=== PATIENT | male | born 1940 | race Caucasian/White ===

== ENCOUNTER 2016-11-26 11:11 | Day surgery (SDC) | payer MEDICARE, BC ==
[2016-11-25 14:31] VITALS: BMI 29.1
[~2016-11-26] VITALS: Ht 177.8 cm; Wt 92.8 kg
[2016-11-26] VITALS (30 sets, daily range): BP systolic 107–137; BP diastolic 60–80; PULSE 78–84; RESP 12–23; Ht 177.8 cm; Wt 92.8 kg
[2016-11-26] MEDS: LACTATED RINGER'S 1,000 ML IV SCH (01:30)
--- NOTE | 2016-11-26 06:50 | HPN ---
Date/Time of Note Date/Time of Note DATE: 11/26/16 TIME: 06:50 Interval H&P Admission Note Pt. seen H&P reviewed: No system changes KAREN ALCANTAR MD Nov 26, 2016 06:50
[~2016-11-26 11:11] MED LIST: ATOR10TA65 PO; BUPIVACAINE 0.5% (SDV) 30 ML, morphine SULFATE (PF) 8 MG, EPINEPHrine 0.3 MG, KETOROLAC... IRR SCH; CEFAZOLIN 2 GM/50 ML (PMX) 50 ML IVPB SCH; CEPH500C PO; COU5 PO; COU75 PO; DEXAMETHASONE 1 MG TAB PO SCH; DILT180T PO; FURO80TA78 PO; GABAPENTIN 300 MG CAP PO SCH; LIDOCAINE 2% (SDV) 5 ML INJ ONE; MAGN250T24 PO; MELO7.5O PO; METO5TAB65 PO; MULT-860 PO; POTA20TA15 PO; PRED20 PO; TRANEXAMIC ACID 1,000 MG in SOD CHLORIDE 0.9% 100 ML IVPB SCH; [UNRECOGNIZED DRUG - CODE] PO; traMADol 50 MG TAB PO SCH
[2016-11-26 12:31] LABS: INR 1.03; PROTIME 13.5 Sec (12.2-14.2); PT RATIO 1.1
[2016-11-26] MEDS ORDERED: [UNRECOGNIZED DRUG - CODE] PO (12:48)
[2016-11-26] MEDS ORDERED: MELO-109 PO (12:49)
[2016-11-26] MEDS ORDERED: WARF5TAB72 PO (13:00)
[2016-11-26] MEDS ORDERED: DIGO125T6 PO (13:01)
[2016-11-26] MEDS ORDERED: NEOSTIGMINE 3 MG/3 ML SYRINGE ONE (13:22)
[2016-11-26] MEDS ORDERED: PROPOFOL 20 ML ONE (13:22)
[2016-11-26] MEDS ORDERED: GLYCOPYRROLATE 0.4 MG INJ ONE (13:22)
[2016-11-26] MEDS ORDERED: CEFAZOLIN 1 GM INJ ONE (13:22)
[2016-11-26] MEDS ORDERED: MIDAZOLAM 1 MG/ML 2 ML INJ ONE (13:22)
[2016-11-26] MEDS ORDERED: ROCURONIUM 50 MG INJ ONE (13:22)
[2016-11-26] MEDS ORDERED: FENTAnyl 50 MCG/ML VIAL ONE ×2 (13:23→15:04)
[2016-11-26] MEDS ORDERED: DEXAMETHASONE 4 MG/ML 1 ML INJ ONE (13:23)
[2016-11-26] MEDS ORDERED: ONDANSETRON 4 MG INJ ONE (13:23)
[2016-11-26] MEDS ORDERED: THROMBIN 5000 UNIT VIAL ONE (14:23)
[2016-11-26] MEDS ORDERED: CA CHLORIDE 10% 10 ML SYRINGE ONE (14:23)
[2016-11-26] MEDS ORDERED: POLYMYXIN/BACITRACIN 1L IRRIG ONE (14:24)
[2016-11-26] MEDS ORDERED: PHENYLephrine (100 MCG/ML) 5ML SYG ONE (14:54)
[2016-11-26] MEDS ORDERED: KETOROLAC 15 MG INJ IV PRN (15:30)
[2016-11-26] MEDS ORDERED: TRIMETHOBENZAMIDE 100 MG/ML VIAL IM PRN (15:30)
[2016-11-26] MEDS ORDERED: morphine 2 MG INJ IV PRN (15:30)
[2016-11-26] MEDS ORDERED: MAGNESIUM HYDROXIDE 30ML CUP PO PRN (15:30)
[2016-11-26] MEDS ORDERED: HYDROmorphONE (0.2 MG/ML) 10ML SYG IV PRN ×3 (15:30)
[2016-11-26] MEDS ORDERED: LABETALOL HCL 20MG INJ IV PRN (15:30)
[2016-11-26] MEDS ORDERED: FENTAnyl 50 MCG/ML VIAL IV PRN ×3 (15:30)
[2016-11-26] MEDS ORDERED: ONDANSETRON 4 MG INJ IV PRN ×2 (15:30)
[2016-11-26] MEDS ORDERED: hydrALAzine 20 MG INJ IV PRN (15:30)
[2016-11-26] MEDS ORDERED: morphine 4 MG/ML VIAL IV PRN (15:30)
[2016-11-26] MEDS ORDERED: METOLAZONE 5 MG TAB PO PRN ×2 (15:30→16:45)
[2016-11-26] MEDS ORDERED: ZOLPIDEM 5 MG TAB PO PRN (15:30)
[2016-11-26] MEDS ORDERED: MEPERIDINE 25 MG INJ IV PRN (15:30)
[2016-11-26] MEDS ORDERED: EPHEDrine SULFATE 50 MG/5 ML SYG IV PRN (15:30)
[2016-11-26] MEDS ORDERED: DIPHENHYDRAMINE 50 MG INJ IV PRN ×2 (15:30)
[2016-11-26] MEDS ORDERED: TRANEXAMIC ACID 1,000 MG in SOD CHLORIDE 0.9% 100 ML IV ONE (15:30)
[2016-11-26] MEDS ORDERED: OXYCODONE/ACETAMINOPHEN (5/325) TAB PO PRN ×2 (15:30)
[2016-11-26] MEDS ORDERED: ACETAMINOPHEN 500 MG TAB PO PRN (15:30)
[2016-11-26] MEDS ORDERED: MIDAZOLAM 1 MG/ML 2 ML INJ IV PRN (15:30)
--- NOTE | 2016-11-26 16:11 | OPR ---
DATE OF OPERATION: 11/26/2016 SURGEON: Karen Zepeda MD SHEEP SORTER: Juan Ramos MD. PREOPERATIVE DIAGNOSIS: Chronic left trochanteric bursitis. POSTOPERATIVE DIAGNOSIS: Chronic left trochanteric bursitis. OPERATION PERFORMED: Left open debridement and trochanteric bursectomy. Railroad Switch[employer] surgeon, Juan Ramos MD, was asked to be present at my request as a result of the compl exity associated with this procedure, including positioning of the extremity, manipulation and prote ction of the neovascular structures. In my opinion, the assistance offered by a ophthalmic surgical assistant is sufficient and Dr. Ramos should be compensated for his time. PROCEDURE IN DETAIL: Following administration of general endotracheal anesthesia, the patient was p laced in the right lateral decubitus position. Left lower extremity was prepped and draped in usual sterile fashion. The previously made incision in the area was marked preoperatively and identified . A longitudinal incision was then made over the area, exposing the iliotibial band. The iliotibia l band was then incised and the area of painful palpation that had been noted preoperatively was the n identified to be perhaps the area of the gluteus ray insertion along the linea aspera. This w as rather tight. The area was then released partially, releasing the tendon and significant mobilit y was noted. Further evaluation revealed no significant sciatic nerve entrapment. The nerve was id entified and protected throughout. In addition, a portion of the short external rotators were then released off the femoral side in order to decrease the tightness in the area. The rest of the bursa was then identified. The bursectomy laterally was completed. A good debridement was noted with no significant bursal reactive tissue was left. Further evaluation revealed that the abductor mechani sm was intact from the reconstruction that had been previously made. The joint was then thoroughly irrigated. The area was closed. The IT band was closed using running 0 Vicryl suture followed by closure in layers and a Prenio dressing for a watertight closure. The patient was then placed supine, extubated and transported to recovery in stable condition. Estimate d blood loss for this procedure was 50 mL. The patient would be admitted overnight for observation. Dictated By: KAREN CABRERA/NTS Conf#: [id number] DID#: [id number]
[2016-11-26] MEDS: CEFAZOLIN 1 GM/50 ML (PMX) 50 ML IVPB SCH ×2 (16:19→23:42)
[2016-11-26] MEDS ORDERED: WARFARIN 5 MG TAB PO SCH (17:00)
--- NOTE | 2016-11-26 17:26 | RADRPT ---
PROCEDURE: XR Pelvis. CLINICAL INDICATION: Pelvic pain. TECHNIQUE: Single AP view of the pelvis. COMPARISON: Left hip radiographs dated 07/11/2015. FINDINGS: There is no fracture or dislocation. There is no lytic or blastic lesion. There are degenerative changes of the lower lumbar spine. The hips are unremarkable. The sacroiliac joints are grossly unremarkable. There is a fractured screw in the left greater trochanter. Surgical clips are present in the scrotu m. IMPRESSION: 1. Degenerative changes of the lower lumbar spine. 2. Fractured screw in the left greater trochanter. 3. Surgical clips in the scrotum. 4. Otherwise unremarkable study. RPTAT: QQ .Axel Morales MD, MD Date Time Electronically viewed and signed by .Axel Morales MD, on 11/26/2016 17:26 .R/
[2016-11-26] MEDS: DEXAMETHASONE 2 MG TAB PO SCH ×2 (19:13→23:42)
[2016-11-26] MEDS: SENNA/DOCUSATE NA (8.6MG/50MG) TAB PO SCH (20:57)
[2016-11-26] MEDS ORDERED: ATORVASTATIN 10 MG TAB PO SCH (21:00)
[2016-11-27 00:01] VITALS: BP 121/64; PULSE 80; RESP 19
[2016-11-27] MEDS: LACTATED RINGER'S 1,000 ML IV SCH (01:30)
[2016-11-27] MEDS: DEXAMETHASONE 2 MG TAB PO SCH (05:41)
[2016-11-27] MEDS: CEFAZOLIN 1 GM/50 ML (PMX) 50 ML IVPB SCH (05:41)
[2016-11-27 05:45] VITALS: BP 123/67; PULSE 80; RESP 18
[2016-11-27] MEDS ORDERED: FUROSEMIDE 40 MG TAB PO SCH ×2 (06:00→09:00)
--- NOTE | 2016-11-27 06:11 | PDOCDIS ---
Discharge Instructions DIAGNOSIS Discharge Diagnosis: Trochanteric bursitis, left hip CONDITION Patient Condition: Good HOME CARE INSTRUCTIONS: Diet Instructions: Regular ACTIVITY: Activity Restrictions: Slowly Increase Activity Bathing Restrictions: Shower FOLLOW UP/APPOINTMENTS Appointments Two weeks SCHOOL/WORK RELEASE May return to School/Work with: With Restrictions School/Work Release Comment: Use crutches as necessary KAREN ALCANTAR MD Nov 27, 2016 06:11
--- NOTE | 2016-11-27 06:37 | PN ---
Date/Time of Note Date/Time of Note DATE: 11/27/16 TIME: 06:36 24 hour Interval Summary Patient is awake and alert with minimal pain. He was able to ambulate with no pain. Physical examination: His wound is clean and dry. He is neurologically intact. He has no signs of DVT Impression: Status post open bursectomy Plan: He will be discharged this morning followed up in the office in 2 weeks. Physical Exam Vital Signs Date Time Temp Pulse Resp B/P Pulse Ox O2 Delivery O2 Flow Rate FiO2 11/27/16 05:45 97.8 80 18 123/67 94 Nasal Cannula 2.0 Intake and Output 11/26/16 11/26/16 11/27/16 15:00 23:00 07:00 Intake Total 1000 ml 1000 ml Output Total 15 ml 450 ml Balance 985 ml 550 ml VTE Prophylaxis VTE Prophylaxis Intervention: anti-embolic stocking Lines/Catheters IV Catheter Type: Saline Lock [place] in Place: No Results Results 24hrs Laboratory Tests Test 11/26/16 12:10 Prothrombin Time 13.5 Prothrombin Time Ratio 1.1 INR International Normalized Ratio 1.03 Activated Partial Thromboplast Time 27.0 Medications Medications Home Meds Reported Medications Digoxin* (Lanoxin*) 0.125 Mg Tablet, 0.125 MG PO DAILY, TAB 11/26/16 Warfarin Sodium* (Coumadin*) 5 Mg Tablet, 5 MG PO DAILY, TAB 11/26/16 Meloxicam* (Meloxicam*) 7.5 Mg Tablet, 15 MG PO DAILY, #30 TAB 11/26/16 Diltiazem Hcl* (Taztia XT*) 240 Mg Capsule.sa, 240 MG PO DAILY, #30 CAP 11/26/16 Mu-Vits-Min Th/Lycopene/Lutein (CENTRUM SILVER TABLET) 1 Each Tablet, 1 EACH PO DAILY, TAB 03/03/16 Metolazone* (Metolazone*) 5 Mg Tablet, 5 MG PO DAILY Y for MUSCLE PAIN, TAB 02/12/16 Potassium Chloride* (K-Dur*) 20 Meq Tab.prt.sr, 20 MEQ PO DAILY, TAB.SA 11/01/14 Furosemide* (Lasix*) 80 Mg Tablet, 80 MG PO DAILY, TAB 11/01/14 Atorvastatin Calcium (Atorvastatin Calcium) 10 Mg Tab, 10 MG PO HS, TAB 2/26/15 Discontinued Reported Medications Oxycodone Hcl-Acetaminophen* (Endocet*) 10-325 Mg Tab, 1 TAB PO Q4H, TAB 03/03/16 Meloxicam* (Meloxicam*) 7.5 Mg/5 Ml Oral.susp, 15 MG PO DAILY, #300 ML 03/03/16 Magnesium (Magnesium) 250 Mg Tablet, 400 MG PO DAILY, TAB 03/03/16 Diltiazem Hcl* (Cardizem LA*) 180 Mg Tab.sr.24h, 180 MG PO DAILY, TAB.SA 11/01/14 Warfarin Sodium (Coumadin) 7.5 Mg Tablet, 7.5 MG PO 3X /WEEK, TAB Patient takes med on Mondays, Wednesdays, and Fridays. 11/01/14 Warfarin Sod (Coumadin) 5 Mg Tablet, 5 MG PO 4 X/WEEK, TAB Patient takes med on Tuesdays, , Saturdays, and Sundays. 11/01/14 Discontinued Scripts Prednisone (Prednisone) 20 Mg Tab, 20 MG PO ONCE for 10 Days, #10 TAB Prov:AXEL PAULA MD 03/05/16 Cephalexin* (Cephalexin*) 500 Mg Capsule, 500 MG PO Q8 for 7 Days, #20 CAP 0 Refills Prov:AXEL PAULA MD 03/05/16 KAREN ALCANTAR MD Nov 27, 2016 06:37
--- NOTE | 2016-11-27 06:38 | DS ---
Date/Time of Note Date/Time of Note DATE: 11/27/16 TIME: 06:37 Discharge Summary Admission/Discharge Info Admit Date/Time November 26, 2016 Discharge Date/Time November 27, 2016 Final Diagnosis Trochanteric bursitis of the left hip Patient Condition: Good Procedures Open trochanteric bursectomy left hip Hx of Present Illness Chronic lateral pain with ambulation Hospital Course Patient underwent an open bursectomy. He was observed overnight due to his medical condition. He was discharged in the morning with no complications. Home Meds Reported Medications Digoxin* (Lanoxin*) 0.125 Mg Tablet, 0.125 MG PO DAILY, TAB 11/26/16 Warfarin Sodium* (Coumadin*) 5 Mg Tablet, 5 MG PO DAILY, TAB 11/26/16 Meloxicam* (Meloxicam*) 7.5 Mg Tablet, 15 MG PO DAILY, #30 TAB 11/26/16 Diltiazem Hcl* (Taztia XT*) 240 Mg Capsule.sa, 240 MG PO DAILY, #30 CAP 11/26/16 Mu-Vits-Min Th/Lycopene/Lutein (CENTRUM SILVER TABLET) 1 Each Tablet, 1 EACH PO DAILY, TAB 03/03/16 Metolazone* (Metolazone*) 5 Mg Tablet, 5 MG PO DAILY Y for MUSCLE PAIN, TAB 02/12/16 Potassium Chloride* (K-Dur*) 20 Meq Tab.prt.sr, 20 MEQ PO DAILY, TAB.SA 11/01/14 Furosemide* (Lasix*) 80 Mg Tablet, 80 MG PO DAILY, TAB 11/01/14 Atorvastatin Calcium (Atorvastatin Calcium) 10 Mg Tab, 10 MG PO HS, TAB 11/01/14 Discontinued Reported Medications Oxycodone Hcl-Acetaminophen* (Endocet*) 10-325 Mg Tab, 1 TAB PO Q4H, TAB 03/03/16 Meloxicam* (Meloxicam*) 7.5 Mg/5 Ml Oral.susp, 15 MG PO DAILY, #300 ML 03/03/16 Magnesium (Magnesium) 250 Mg Tablet, 400 MG PO DAILY, TAB 03/03/16 Diltiazem Hcl* (Cardizem LA*) 180 Mg Tab.sr.24h, 180 MG PO DAILY, TAB.SA 11/01/14 Warfarin Sodium (Coumadin) 7.5 Mg Tablet, 7.5 MG PO 3X /WEEK, TAB Patient takes med on Mondays, Wednesdays, and Fridays. 11/01/14 Warfarin Sod (Coumadin) 5 Mg Tablet, 5 MG PO 4 X/WEEK, TAB Patient takes med on Tuesdays, , Saturdays, and Sundays. 11/01/14 Discontinued Scripts Prednisone (Prednisone) 20 Mg Tab, 20 MG PO ONCE for 10 Days, #10 TAB Prov:AXEL PAULA MD 03/05/16 Cephalexin* (Cephalexin*) 500 Mg Capsule, 500 MG PO Q8 for 7 Days, #20 CAP 0 Refills Prov:AXEL PAULA MD 03/05/16 Pending Labs Laboratory Tests Test 11/26/16 12:10 Prothrombin Time 13.5Sec (12.2-14.2) Prothrombin Time Ratio 1.1 INR International Normalized Ratio 1.03 Activated Partial Thromboplast Time 27.0Sec (25.0-35.0) KAREN ALCANTAR MD Nov 27, 2016 06:38
[2016-11-27 08:23] VITALS: BP 135/75; RESP 18
[2016-11-27] MEDS: SENNA/DOCUSATE NA (8.6MG/50MG) TAB PO SCH (08:45)
[2016-11-27] MEDS ORDERED: DILTIAZEM (CD) 240 MG CAP PO SCH (09:00)
[2016-11-27] MEDS ORDERED: POTASSIUM CHLORIDE (SR) 20 MEQ TAB PO SCH (09:00)
[2016-11-27] MEDS ORDERED: DIGOXIN 0.125 MG TAB PO SCH (13:00)
== END 2016-11-27 10:50 | disposition home or self-care (01) ==
LOC: UNDOADMIN 11:11 → SDS 11:11 → REC 11:11 → MS1 18:30 → SDS 11-27 10:50
PROVIDERS: ATTEND Orthopaedic Surgery
DX: M70.62 Trochanteric bursitis, left hip (principal); I12.9 Hypertensive chronic kidney disease with stage 1 through stage 4 chronic kidney disease, or unspecified chronic kidney disease; N18.9 Chronic kidney disease, unspecified; I48.91 Unspecified atrial fibrillation; E78.5 Hyperlipidemia, unspecified
CPT/HCPCS: 27062; 72170; 85610; 85730; 86999; J0171; J0690; J0735; J1100; J1885; J2250; J2274; J2405; J2710; J3010; J3370; J7120; Z7610; J2370